=== PATIENT | male | born 1955 | race Caucasian/White ===

== ENCOUNTER 2017-08-30 13:16 | Day surgery (SDC) | END 2017-08-31 08:20 | disposition home or self-care (01) | DX: K62.1 Rectal polyp (principal); D12.2 Benign neoplasm of ascending colon; D12.4 Benign neoplasm of descending colon; D12.5 Benign neoplasm of sigmoid colon; K57.90 Diverticulosis of intestine, part unspecified, without perforation or abscess without bleeding; K64.8 Other hemorrhoids | CPT/HCPCS: 45380; 45385; 88305; J2250; J3010; Z7610 ==